=== PATIENT | male | born 1985 | race Caucasian/White ===

== ENCOUNTER 2018-05-07 12:36 | Emergency (ER) | payer SELFPAY ==
[2018-05-07 12:37] VITALS: BP 114/83; PULSE 86; RESP 14; TEMP 37; O2SAT 97; BMI 21.2
--- NOTE | 2018-05-07 13:00 | CT_ITS ---
STUDY: CT BRAIN WITHOUT CONTRAST REASON FOR EXAM: Male, 33 years old. BANSAL X 3 WKS INTERMITTENT, HX-ASTHMA, PRESSURE AT TOP OF HEAD RADIATION DOSAGE (If Supplied By Facility): CTDIvol = ( 44.99 ) mGy, DLP = ( 728.62 ) mGycm TECHNIQUE: Transaxial CT imaging of the brain was performed without administration of intravenous contrast material. Individualized dose optimization techniques were used for this CT. COMPARISON: None. FINDINGS: Normal soft tissue structures. Normal calvarium. Normal size ventricles and extra-axial spaces for the patient's age. Normal white matter tracts of the cerebral hemispheres. Normal basal ganglia and thalami. Normal brainstem. Normal cerebellum. There is no intracranial hemorrhage. There are no findings of an acute ischemic infarction. Normal visualized paranasal sinuses. CT/Brain/Head without Contrast IMPRESSION: Normal unenhanced CT scan of the brain. Electronically Signed: Ilene Melara MD at 15:17 EDT , Service support ,
--- NOTE | 2018-05-07 13:01 | ED.VISSUMM ---
- ER Visit Summary Date of Service: 05/07/18 Chief Complaint: [] Headache for 3 weeks History of Present Illness: The patient is a 33 M [] has a chronic nagging headache for 3 weeks that will not go away, he is tried [id number] meds no improvement initially had nausea none recently. He has no history of ASSISTED SALES REPRESENTATIVE disorder, no history of brain tumor or brain aneurysm does report father he believes of a brain tumor that was cancerous, he has had no trauma no URI symptoms no neck stiffness or pain no fever no cough no paresthesias his review of systems related to work in family activities are unremarkable and general review of systems also negative Physical Examination: [] He is in no distress he complains of pain really to the top of his head palpation of the head is unremarkable pupils are equal reactive nose and throat unremarkable the neck is supple the lungs are clear the heart tones unremarkable abdomen soft nontender neurologic exam shows normal cranial nerves no mental status normal since sensation and strength normal gait Test Results: [] Emergency Department Course and Treatment: [] IV fluids screening labs Compazine and Benadryl head CT Treatment Plan: [] Patient screening labs head CT are all unremarkable, feeling better after therapy, explained that the etiology of headaches are unclear he may require additional ASSISTED SALES REPRESENTATIVE imaging which she will obtain as an outpatient otherwise he will take Naprosyn 500 twice daily for the headaches as needed return for change in symptoms obtain the follow-up studies as he understands that the headaches can be of life-threatening etiologies he needs additional workup Disposition: [] Home stable Impression: [] Headache for 3 weeks etiology unclear This note was generated with [employer] dictation software. It may contain incorrect words, spelling, and punctuation that were not noted in review of the chart prior to signing ED Disposition - Plan for ED Patient: Chief Complaint: Headache Referrals: Sukumar Villarreal MD [Primary Care Provider] -
[2018-05-07] MEDS: 0.9% Normal Saline 1,000 ML 999 ML IV (13:38)
[2018-05-07] MEDS: proCHLORPERazine 10 MG/2 ML Vial IV (13:43)
[2018-05-07] MEDS: DiphenhydrAMINE 50 MG/ML Syringe 25 MG IV (13:43)
[2018-05-07 13:55] LABS: Absolute Lymphocyte Count 2.47 X10^3/ul (0.83-4.51); Absolute Neutrophil Count 9.1 X10^3/uL (2.0-7.7); Basophil# 0.05 X10^3/uL; Basophil% 0.4 % (0-1); Eosinophil# 0.08 X10^3/uL; Eosinophils% 0.6 % (0-5); Hematocrit 43.7 % (40-54); Hemoglobin 15.4 g/dl (13.0-16.5); Lymphocyte # 2.47 X10^3/ul (4.0); Lymphocyte % 19.7 % (19-41); Mean Corp Hgb Conc 35.2 g/gl (32-36); Mean Corpuscular Hgb 30.8 pg (27.0-32.0); Mean Corpuscular Volume 87.4 fL (80-94); Monocyte# 0.76 X10^3/uL; Monocyte% 6.1 % (0-10); Neutrophil # 9.13 X10^3/uL (2.7-7.7); Neutrophil % 72.9 % (47-70); Platelet Count 295 K/mm3 (150-450); RBC Distribution Width CV 12.3 % (11.6-14.6); RBC Distribution Width SD 39.3 fl (35.1-43.9); White Blood Count 12.5 K/mm3 (4.4-11.0)
[2018-05-07 13:58] LABS: Differential Indicated SCAN CRITERIA MET; POSITIVE COUNT NO; POSITIVE DIFFERENTIAL NO; POSITIVE MORPHOLOGY YES
[2018-05-07 14:04] LABS: Anion Gap 8 (5-15); BUN 11 mg/dL (7-18); BUN/Creat Ratio 13.2 RATIO (10-20); Calcium,Total 9.2 mg/dL (8.5-10.1); Chloride 104 mmol/L (98-107); Creatinine, Serum 0.83 mg/dL (0.70-1.30); EST Glomerular Filtration Rate 114 mL/min (>60); Est Glom Filt Rate - Afr Amer 138 mL/min (>60); Estimated Creatinine Clearance 122.75 ml/min; Glucose 97 mg/dL (74-106); Potassium 4.2 mmol/L (3.5-5.1); Sodium Level 140 mmol/L (136-145)
[2018-05-07 14:08] LABS: Differential Comment SCANNED; Reactive Lymphocyte 1+
--- NOTE | 2018-05-07 15:26 | ED.DEP ---
ED Disposition - Plan for ED Patient: Chief Complaint: Headache Instructions: ED Cephalgia Unspecified Prescriptions: Naproxen [Naprosyn] 500 mg PO BID #14 tab Referrals: Sukumar Villarreal MD [Primary Care Provider] -
[2018-05-07 15:37] VITALS: BP 138/95; PULSE 64; RESP 14; O2SAT 99
--- NOTE | 2018-05-07 15:38 | ED.RN ---
PT GIVEN WRITTEN AND VERBAL DISCHARGE INSTRUCTIONS AND HOME GOING PRESCRIPTIONS. PT VERBALIZES UNDERSTANDING. EDUCATED NOT TO DRIVE AFTER HAVING MEDICATIONS THAT CAUSE DROWSINESS. VERBALIZES UNDERSTANDING. IV D/C AND COVERED WITH 2X2 GAUZE DRESSING AND PAPER TAPE.
== END 2018-05-07 15:40 | disposition home or self-care (01) ==
LOC: ED 13:05
PROVIDERS: Emergency Provider Emergency Medicine; Family Provider Family Medicine; PCP Family Medicine
DX: R51 Headache (principal)
CPT/HCPCS: 70450; 80048; 85025; 96374; 96375; 99283; J7030; A4216

== ENCOUNTER 2020-02-08 13:45 | Emergency (ER) | payer OTHER, SELFPAY ==
[2020-02-08 13:46] VITALS: BP 125/84; PULSE 98; RESP 18; TEMP 36.6; O2SAT 98; BMI 24.2
[2020-02-08] MEDS: Ibuprofen 600 MG Tablet PO (14:21)
[2020-02-08 14:33] LABS: Bacteria 0 SEEN /hpf (None Seen); Mucous, Urine 0 SEEN /hpf (<or=2+); Red Blood Cells-Urine 0 SEEN /hpf (0-5); Squamous Epithelial Cells - UA 0 SEEN /hpf (0-5); White Blood Cells 0 SEEN /hpf (0-5)
[2020-02-08 14:36] LABS: Color, Urine Yellow (Yellow); Glucose, Dipstick Normal (Normal); Ketone-Dipstick 15 mg/dl (Negative); Leukocyte Esterase-Dipstick Negative /ul (Negative); Nitrite-Dipstick Negative (Negative); Occult Blood-Urine 10 /ul (Negative); Protein-Dipstick 15 mg/dl (Negative); Specific Gravity, Urine 1.015 (1.002-1.030); Urine Bilirubin Dipstick Negative (Negative); Urine Clarity Sl. Cloudy (Clear); Urine Urobilinogen 1 mg/dl (Normal)
--- NOTE | 2020-02-08 14:36 | ED.VISSUMM ---
- ER Visit Summary Date of Service: 02/08/20 Chief Complaint: Right groin pain History of Present Illness: The patient is a 34 M who goes to [facility]. He reports that he has had pain to the right inguinal region that is chronic, but is worsened over the past 2 days. He describes it as a wet burning that is 10 out of 10 at worst an 8 out of 10 currently. Is worsened by walking or lifting. Is relieved by nothing. He denies any penile discharge or testicular pain. He denies any possibility of an STD exposure. He has dysuria that began today. He denies any fever or chills. Patient reports that when the pain is severe it makes him nauseated. He had 2 episodes of diarrhea yesterday. No blood in stools or black tarry stools. Physical Examination: Vitals: Stable. Afebrile. General: Well-nourished and well-developed. Head: Normocephalic atraumatic. Neck: Supple, no lymphadenopathy. No JVD. Nontender. Cardiovascular: Regular rate and rhythm. No murmurs. Respiratory: No respiratory distress. Clear to auscultation bilaterally. Abdominal: Soft, mild tenderness palpation over the right inguinal ligament, no palpable hernia, no tenderness in the right lower quadrant, nondistended, normal bowel sounds. No guarding, rebound, or peritoneal signs. : Normal circumcised male. No testicular tenderness palpation. He does have an inguinal hernia on the right. There is no herniated contents at this time. Back: Nontender. Extremities: Nontender, no edema. Skin: Normal color, no rash. Neurologic: Alert and oriented ?3. Cranial nerves II through XII are intact. Normal strength and sensation. Psych: Normal affect. Test Results: UA is negative. Emergency Department Course and Treatment: Patient was treated with ibuprofen. He is resting comfortably. Treatment Plan: Discussed the patient that I suspect his pain is from his inguinal hernia. He is instructed on symptomatic care. Use Tylenol and/or ibuprofen for pain as needed. He will be discharged instructions to follow-up with Dr. Pereira in 1 to 2 weeks for another exam. Return to the emergency department for any worsening symptoms. Disposition: To home in improved and stable condition. Impression: 1. Right inguinal hernia. This note was generated with [employer] software. It may contain incorrect words, spelling, and punctuation that were not noted in review of the chart prior to signing ED Disposition - Plan for ED Patient: Instructions: ED Hernia Inguinal Referrals: Mary Pereira MD [STAFF PHYSICIAN] - 1-2 Weeks
== END 2020-02-08 15:23 | disposition home or self-care (01) ==
LOC: ED 14:42
PROVIDERS: Emergency Provider Emergency Medicine; PCP Family Medicine
DX: K40.90 Unilateral inguinal hernia, without obstruction or gangrene, not specified as recurrent (principal); F17.210 Nicotine dependence, cigarettes, uncomplicated
CPT/HCPCS: 81001; 99283

== ENCOUNTER → 2020-04-15 17:30 | Outpatient (CLI) | payer OTHER, SELFPAY | PROVIDERS: PCP Family Medicine; Referring Provider Nurse Practitioner Family; Visit Provider Nurse Practitioner Family | DX: Z20.828 Contact with and (suspected) exposure to other viral communicable diseases (principal) | CPT/HCPCS: 87635; 94799; U0003 ==